=== PATIENT | female | born 1995 | race African-American/Black ===

== ENCOUNTER 2017-03-12 12:21 | Emergency (ER) | payer SELFPAY ==
[~2017-03-12] VITALS: Ht 154.9 cm; Wt 70.0 kg
[~2017-03-12 12:21] MED LIST: PRENATAL1 TA1 PO
[2017-03-12] MEDS ORDERED: VENTOLIN HFA IN (13:21)
[2017-03-12] MEDS ORDERED: MEDDOSEPAK PO (13:21)
[2017-03-12] MEDS ORDERED: ALBUTEROL SUL0.083 % IN (13:21)
[2017-03-12 13:29] VITALS: BP 150/90
== END 2017-03-12 13:38 | disposition home or self-care (01) | DRG 203 ==
LOC: ED 12:21
DX: J45.901 Unspecified asthma with (acute) exacerbation (principal); F17.210 Nicotine dependence, cigarettes, uncomplicated; Z91.14 Patient's other noncompliance with medication regimen

== ENCOUNTER 2018-10-06 20:22 | Emergency (ER) | payer SELFPAY ==
[~2018-10-06] VITALS: Ht 154.9 cm; Wt 50.0 kg
[~2018-10-06 20:22] MED LIST changes: +ALBUTEROL SUL0.083 % IN; +MEDDOSEPAK PO; +VENTOLIN HFA IN
[2018-10-06] MEDS ORDERED: AMOXICILLIN500 MG PO (21:21)
[2018-10-06] MEDS ORDERED: PERCOCET 5/325M1 TAB PO (21:21)
[2018-10-06 21:25] VITALS: BP 122/83
== END 2018-10-06 21:25 | disposition home or self-care (01) | DRG 159 ==
LOC: ED 20:22
DX: K08.89 Other specified disorders of teeth and supporting structures (principal); F17.210 Nicotine dependence, cigarettes, uncomplicated

== ENCOUNTER 2019-07-12 11:48 | Emergency (ER) | payer SELFPAY ==
[~2019-07-12 11:48] MED LIST changes: +AMOXICILLIN500 MG PO; +PERCOCET 5/325M1 TAB PO
[2019-07-12] MEDS ORDERED: AMOXICILLIN875 MG PO (12:17)
[2019-07-12 12:20] VITALS: BP 121/80
== END 2019-07-12 12:20 | disposition home or self-care (01) | DRG 153 ==
LOC: ED 11:48
DX: J02.9 Acute pharyngitis, unspecified (principal); F17.290 Nicotine dependence, other tobacco product, uncomplicated

== ENCOUNTER 2021-06-28 08:28 | Emergency (ER) | payer SELFPAY ==
[~2021-06-28] VITALS: Ht 154.9 cm; Wt 100.0 kg
[~2021-06-28 08:28] MED LIST changes: +AMOXICILLIN875 MG PO
[2021-06-28 08:59] VITALS: BP 108/77
[2021-06-28 09:16] LABS: URINE BILIRUBIN - DIPSTICK NEGATIVE (NEGATIVE); URINE BLOOD DIPSTICK MODERATE (NEGATIVE); URINE COLOR YELLOW; URINE GLUCOSE - DIPSTICK NEGATIVE (NEGATIVE); URINE KETONE NEGATIVE (NEGATIVE); URINE LEUK ESTERASE NEGATIVE (NEGATIVE); URINE PROTEIN - DIPSTICK NEGATIVE (NEG-TRACE); URINE UROBILINOGEN - DIPSTICK 0.2 E.U./dL (0.2)
[2021-06-28 09:22] LABS: URINE NITRITE - DIPSTICK NEGATIVE (Negative)
[2021-06-28 09:23] LABS: URINE EPITHELIAL CELLS FEW EPI/hpf (0-FEW); URINE RBC 25-50 RBC/hpf (0-5)
[2021-06-28] MEDS ORDERED: BACTRIM DS1 TAB PO (09:28)
[2021-06-28 09:31] VITALS: BP 116/83
[2021-06-28 09:35] VITALS: BP 116/83
== END 2021-06-28 09:40 | disposition home or self-care (01) | DRG 690 ==
LOC: ED 08:28
DX: N39.0 Urinary tract infection, site not specified (principal); J45.909 Unspecified asthma, uncomplicated; F17.200 Nicotine dependence, unspecified, uncomplicated

== ENCOUNTER 2023-05-22 08:13 | Emergency (ER) | payer OTHER, BC, MEDICAID ==
[~2023-05-22] VITALS: Ht 154.9 cm; Wt 87.0 kg
[~2023-05-22 08:13] MED LIST changes: +BACTRIM DS1 TAB PO
[2023-05-22 08:36] VITALS: BP 112/61
[2023-05-22 08:45] VITALS: BP 112/70
[2023-05-22 08:58] LABS: URINE BILIRUBIN - DIPSTICK Negative (NEGATIVE); URINE BLOOD DIPSTICK Trace-intact (NEGATIVE); URINE GLUCOSE - DIPSTICK Negative (NEGATIVE); URINE KETONE Negative (NEGATIVE); URINE LEUK ESTERASE Negative (NEGATIVE); URINE NITRITE - DIPSTICK Negative (Negative); URINE PROTEIN - DIPSTICK Negative (NEG-TRACE)
[2023-05-22 08:58] LABS: BASO% 0.3 % (0-3); EOS% 2.3 % (0-8); HEMATOCRIT 38.3 % (37.0-47.0); HEMOGLOBIN 12.3 g/dl (12.0-16.0); IMMATURE GRANULOCYTES 1.3 % (0.0-5.0); LYMPH% 19.4 % (15-41); MEAN CELL VOLUME 81.3 fL CALC (80.0-100.0); MEAN CORPUSCULAR HGB 26.1 pG CALC (26.0-32.0); MEAN CORPUSCULAR HGB CONC 32.1 g/dL CAL (32.0-36.0); MONO% 5.1 % (2-13); NEUT# 8.51 thou/uL (2.00-7.15); NEUT% 71.6 % (42-76); RED BLOOD COUNT 4.71 mill/uL (4.20-5.60); RED CELL DISTRI WIDTH 14.2 % (11.5-15.5)
[2023-05-22 08:59] LABS: URINE COLOR Yellow
[2023-05-22 09:00] VITALS: BP 104/63
[2023-05-22 09:08] LABS: ALBUMIN 3.5 g/dL (3.2-5.0); ALKALINE PHOSPHATASE 97 u/l (38-126); ANION GAP 10 (6-22 (CALC)); BILIRUBIN, TOTAL 0.3 mg/dL (0.02-1.3); BUN 5 mg/dL (7-17); BUN/CREATININE RATIO 10 (12-20 (CALC)); CARBON DIOXIDE 21 mmol/l (22-30); CHLORIDE 109 mmol/l (95-108); CREATININE 0.6 mg/dL (0.5-1.0); GFR FOR AFR.AMER. > 60 ML/MIN (>=60 (CALC)); GFR OTHER RACES > 60 ML/MIN (>=60 (CALC)); POTASSIUM 3.8 mmol/l (3.5-5.1); SGOT/AST 27 u/l (14-36); SODIUM 137 mmol/l (137-146); TOTAL PROTEIN 6.5 g/dL (6.3-8.2)
[2023-05-22 09:16] VITALS: BP 109/66
[2023-05-22 09:30] VITALS: BP 100/65
[2023-05-22 09:49] VITALS: BP 100/65
== END 2023-05-22 09:50 | disposition short-term general hospital (02) | DRG 833 ==
LOC: ED 08:13
PROVIDERS: Family Medicine
DX: O9A.212 Injury, poisoning and certain other consequences of external causes complicating pregnancy, second trimester (principal); R10.32 Left lower quadrant pain; O99.332 Smoking (tobacco) complicating pregnancy, second trimester; F17.200 Nicotine dependence, unspecified, uncomplicated; V43.52XA Car driver injured in collision with other type car in traffic accident, initial encounter; Z3A.21 21 weeks gestation of pregnancy

== ENCOUNTER 2024-04-04 00:27 | Emergency (ER) | payer OTHER ==
[~2024-04-04] VITALS: Ht 154.9 cm; Wt 83.9 kg
[2024-04-04] MEDS ORDERED: AMOXICILLIN & POT CLAVULANATE 875 MG/TAB PO ONE (01:10)
[2024-04-04] MEDS ORDERED: LIDOCAINE VISCOUS 2% 15 ML UDC PO ONE (01:10)
[2024-04-04] MEDS ORDERED: AMOX/K CLAV875 M1 PO (01:14)
[2024-04-04] MEDS ORDERED: PERCOCET 5/325M1 TAB PO (01:14)
[2024-04-04] MEDS ORDERED: LIDOCAINE21 MT (01:14)
[2024-04-04] MEDS ORDERED: oxyCODONE 5MG/ ACETAMINOPHEN 325MG TAB PO ONE (01:15)
[2024-04-04 01:58] VITALS: BP 135/90
== END 2024-04-04 02:00 | disposition home or self-care (01) ==
LOC: ED 00:27
DX: K02.9 Dental caries, unspecified (principal); J45.909 Unspecified asthma, uncomplicated

== ENCOUNTER 2024-04-18 02:36 | Emergency (ER) | payer OTHER ==
[~2024-04-18] VITALS: Ht 152.4 cm; Wt 80.0 kg
[2024-04-18] VITALS (12 sets, daily range): BP systolic 90–117; BP diastolic 56–72
[~2024-04-18 02:36] MED LIST changes: +AMOX/K CLAV875 M1 PO; +LIDOCAINE21 MT
[2024-04-18] MEDS ORDERED: ALBUTEROL SULFATE 8 GM INH IN ONE (04:05)
[2024-04-18] MEDS ORDERED: DEXAMETHASONE 2 MG/TAB TAB PO ONE (04:05)
[2024-04-18] MEDS ORDERED: ACETAMINOPHEN 325 MG/TAB PO ONE (05:00)
[2024-04-18] MEDS ORDERED: DECADRON4 MG PO (06:03)
[2024-04-18] MEDS ORDERED: TAM75CAP PO (06:03)
== END 2024-04-18 06:22 | disposition home or self-care (01) ==
LOC: ED 02:36
DX: J10.1 Influenza due to other identified influenza virus with other respiratory manifestations (principal); B97.89 Other viral agents as the cause of diseases classified elsewhere; J45.909 Unspecified asthma, uncomplicated; Z20.822 Contact with and (suspected) exposure to COVID-19